=== PATIENT | female | born 1965 | race African-American/Black ===

== ENCOUNTER 2020-11-02 11:02 | Emergency (ER) | payer MEDICAID ==
[~2020-11-02] VITALS: Ht 160 cm; Wt 55.0 kg
[2020-11-02 12:11] LABS: BASOPHILS % 0.8 % (0.0-2.0); EOSINOPHILS % 0.1 % (0.0-5.0); HEMATOCRIT. 42.6 % (36.0-48.0); LYMPHOCYTES % 14.5 % (20.0-50.0); MEAN CORPUSCULAR HEMOGLOBIN 32.2 pg (28.0-32.0); MEAN CORPUSCULAR VOLUME 91.7 fL (81.0-99.0); MEAN PLATELET VOLUME 7.9 fl (7.4-10.4); MONOCYTES % 5.5 % (2.0-8.0); NEUTROPHILS % 79.1 % (40.0-76.0); PLATELET 404 x1000/uL (130-400); RED BLOOD CELL COUNT 4.64 mill/uL (4.2-5.4); RED CELL DISTRIBUTION WIDTH 14.6 % (11.6-14.6)
[2020-11-02 12:14] LABS: CLARITY URINE TURBID (CLEAR); COLOR URINE DARK YELLOW (YELLOW); KETONES URINE 3+ (NEGATIVE); LEUKOCYTE ESTERASE URINE 2+ (NEGATIVE); NITRITE URINE NEGATIVE (NEGATIVE); OCCULT BLOOD URINE 2+ (NEGATIVE); PH URINE 5.5 (4.5-8.0); PROTEIN URINE 2+ (NEGATIVE); SPECIFIC GRAVITY URINE 1.032 (1.005-1.030)
[2020-11-02] MEDS ORDERED: OLANZAPINE 5MG TABLET PO SCH (12:15)
[2020-11-02 12:49] LABS: *AMPHETAMINES SCREEN URINE NEGATIVE (NEGATIVE); *BARBITURATES SCREEN URINE NEGATIVE (NEGATIVE); *BENZODIAZEPINES SCREEN URINE NEGATIVE (NEGATIVE); *COCAINE SCREEN URINE PRESUMTIVE POSITIVE (NEGATIVE); CANNABINOID URINE SCREEN PRESUMTIVE POSITIVE (NEGATIVE); METHADONE URINE SCREEN NEGATIVE (NEGATIVE); OPIATES URINE SCREEN NEGATIVE (NEGATIVE); PHENCYCLIDINE URINE SCREEN NEGATIVE (NEGATIVE)
[2020-11-02 15:00] LABS: CHLORIDE 99 mEq/L (98-107)
[2020-11-02 15:07] LABS: ETHANOL BLOOD < 10 mg/dL
[2020-11-02] MEDS ORDERED: LORAZEPAM 0.5MG TABLET PO ONE (16:45)
[2020-11-02] MEDS ORDERED: ZIPRASIDONE MESYLATE 20MG/VIAL IM ONE (17:45)
[2020-11-03] MEDS ORDERED: ZIPRASIDONE MESYLATE 20MG/VIAL IM SCH (02:30)
[2020-11-03] MEDS ORDERED: AMOXICILLIN 500 MG CAPSULE PO SCH (14:00)
[2020-11-03] MEDS: OLANZAPINE 5MG TABLET PO SCH ×2 (14:01→17:00)
[2020-11-03] MEDS: LORAZEPAM 2MG/ML CPJ IM PRN (14:01)
[2020-11-03] MEDS: ZIPRASIDONE MESYLATE 20MG/VIAL IM PRN ×2 (14:02→21:46)
[2020-11-04] MEDS: ZIPRASIDONE MESYLATE 20MG/VIAL IM PRN ×2 (08:00→16:51)
[2020-11-04] MEDS: OLANZAPINE 5MG TABLET PO SCH ×3 (09:00→23:44)
[2020-11-04] MEDS ORDERED: DIPHENHYDRAMINE 50MG/ML VIAL IM NR (16:45)
[2020-11-04] MEDS: LORAZEPAM 2MG/ML CPJ IM PRN (16:51)
[2020-11-04] MEDS ORDERED: DIPHENHYDRAMINE 50MG CAPSULE PO ONE (23:30)
[2020-11-04] MEDS ORDERED: OLANZAPINE 5MG TABLET ODT PO ONE (23:30)
[2020-11-04] MEDS ORDERED: LORAZEPAM 0.5MG TABLET PO ONE (23:30)
[2020-11-05] MEDS: LORAZEPAM 2MG/ML CPJ IM PRN ×2 (08:26→17:29)
[2020-11-05] MEDS ORDERED: LORAZEPAM 2MG/ML CPJ IM STA (08:53)
[2020-11-05] MEDS ORDERED: HALOPERIDOL LACTATE 5MG/ML VIAL IM ONE (09:00)
[2020-11-05] MEDS ORDERED: RISPERIDONE 0.5MG TABLET PO SCH (14:30)
[2020-11-05] MEDS ORDERED: LORAZEPAM 1MG TABLET PO ONE (14:30)
[2020-11-05] MEDS ORDERED: LORAZEPAM 1MG TABLET PO NR (15:15)
[2020-11-05] MEDS: OLANZAPINE 5MG TABLET PO SCH (17:22)
[2020-11-05] MEDS: ZIPRASIDONE MESYLATE 20MG/VIAL IM PRN (17:30)
[2020-11-06] MEDS: ZIPRASIDONE MESYLATE 20MG/VIAL IM SCH ×2 (01:35→14:32)
[2020-11-06] MEDS: LORAZEPAM 2MG/ML CPJ IM PRN ×2 (08:02→17:09)
[2020-11-06] MEDS: OLANZAPINE 5MG TABLET PO SCH ×2 (08:03→17:09)
[2020-11-06] MEDS: ZIPRASIDONE MESYLATE 20MG/VIAL IM PRN (09:28)
[2020-11-06] MEDS ORDERED: CEFTRIAXONE SODIUM 500 MG/VIAL IM ONE (12:45)
[2020-11-06 17:15] VITALS: BP 131/82
== END 2020-11-06 17:54 ==
LOC: ER 11:14
DX: F23 Brief psychotic disorder (principal); F19.10 Other psychoactive substance abuse, uncomplicated; R74.01 Elevation of levels of liver transaminase levels; E87.6 Hypokalemia; Z86.59 Personal history of other mental and behavioral disorders; Z98.890 Other specified postprocedural states
CPT/HCPCS: 36415; 80053; 80305; 80307; 80320; 80329; 81003; 85025; 87077; 87086; 87186; 96372; 99285; J0696; J1630; J2060; J3486; Q0163; G0480